=== PATIENT | female | born 1940 | race Caucasian/White ===

== ENCOUNTER 2016-09-17 10:36 | Emergency (ER) | payer MEDICARE ==
[~2016-09-17] VITALS: Ht 165.1 cm; Wt 74.5 kg
[2016-09-17 10:52] VITALS: BP 146/72; PULSE 74; RESP 18; TEMP 98.1; O2SAT 96
[2016-09-17] MEDS ORDERED: ASPI-110 PO (10:59)
[2016-09-17] MEDS ORDERED: AMLO10 PO (10:59)
[2016-09-17] MEDS ORDERED: IRBE300T44 PO (10:59)
[2016-09-17] MEDS ORDERED: HYDR12.57 PO (10:59)
[2016-09-17 11:00] VITALS: BP 146/72; PULSE 74; RESP 14; TEMP 98.1; O2SAT 96
--- NOTE | 2016-09-17 11:38 | RADHPO ---
EXAM DATE/TIME: 09/17/2016 11:23 [place] COMPARISON: No previous studies available for comparison. INDICATIONS : Left arm pain; fall yesterday. MEDICAL HISTORY : None. SURGICAL HISTORY : None. ENCOUNTER: Initial ACUITY: 1 day PAIN SCORE: 10/10 LOCATION: Left humerus. FINDINGS: There is a transverse fracture through the surgical head of the humerus with possible involvement of the greater and lesser tuberosity and possible impaction. The shaft of the humerus is intact and no radiopaque foreign bodies. CONCLUSION: Fracture of the surgical neck of the proximal humerus with possible involvement of the tuberosities. Scott Casper MD on September 17, 2016 at 11:35 Board Certified Radiologist. This report was verified electronically.
--- NOTE | 2016-09-17 11:56 | PD ---
HPI Chief Complaint: Injury Time Seen by Provider: 11:15 Travel History International Travel<30 days: No Contact w/Intl Traveler<30days: No Traveled to known affect area: No History of Present Illness HPI 75-year-old female presents to the emergency room for evaluation of left shoulder pain after trip and fall last night. Patient stubbed her toe and fell to the left landing directly on her left shoulder. She had immediate pain. She took 800 g ibuprofen last night. Her took her to an urgent care center this morning where x-rays were performed that showed she had a large fracture in her shoulder. She was given a sling and discharged with prescription for Percocet. Patient states pain is localized to the humeral head. When she does not move her arm, pain is controlled. With any range of motion, she has extreme pain. Denies paresthesias. She denies hitting her loss of consciousness. Denies any other injuries including back pain, neck pain , hip pain. She has been ambulatory since falling. She last drank coffee with cream and sugar this morning at 7:00. She has not eaten today. She does not have an orthopedic surgeon in the area. [facility] Past Medical History Hypertension: Yes Tetanus Vaccination: > 5 Years Influenza Vaccination: Yes ?: Not Menopausal: Yes Social History Alcohol Use: Yes (Occ.) Tobacco Use: No Substance Use: No Allergies-Medications (Allergen,Severity, Reaction): Coded Allergies: No Known Allergies (Unverified , 09/17/16) Reported Meds & Prescriptions Reported Meds & Active Scripts Active Reported Aspirin 81 (Aspirin) 81 Mg Tabdr 2 Tab PO DAILY Norvasc (Amlodipine Besylate) 10 Mg Tab 10 Mg PO DAILY Hydrochlorothiazide 12.5 Mg Cap 12.5 Mg PO DAILY Avapro (Irbesartan) 300 Mg Tab 300 Mg PO DAILY Review of Systems Except as stated in HPI: all other systems reviewed are Neg Physical Exam Narrative GENERAL: Well-nourished, well-developed female in no acute distress. Afebrile. Ambulatory. SKIN: Focused skin assessment warm/dry. HEAD: Normocephalic. EYES: No scleral icterus. No injection or drainage. NECK: Supple, trachea midline. No JVD or lymphadenopathy. CARDIOVASCULAR: Regular rate and rhythm without murmurs, gallops, or rubs. RESPIRATORY: Breath sounds equal bilaterally. No accessory muscle use. EXTREMITY: Left shoulder extremely tender to palpation. Limited range of motion of the shoulder secondary to pain. 2+ radial pulse. Radial, ulnar, and median nerves intact. Data Data Last Documented VS Vital Signs Date Time Temp Pulse Resp B/P Pulse Ox O2 Delivery O2 Flow Rate FiO2 09/17/16 11:00 98.1 74 14 146/72 96 09/17/16 10:52 Room Air Orders Humerus (Min 2vws) (09/17/16 ) MDM Medical Decision Making Medical Screen Exam Complete: Yes Emergency Medical Condition: Yes Medical Record Reviewed: Yes Differential Diagnosis Fracture versus sprain versus strain Narrative Course 75-year-old female presents to the emergency room for evaluation of left shoulder pain after trip and fall last night. Patient denies any other symptoms. Pain is controlled if there is no movement of the arm but she has excruciating pain with any range of motion. Left upper extremity is neurovascular intact with 2+ radial pulse. Radial, ulnar, median nerves intact. X-ray shows a proximal humeral neck fracture with possible involvement of the tuberosities. Fracture appears nondisplaced. I spoke to my attending physician, Dr. Gonzalez, who recommends having patient follow up as an outpatient as the fracture does not seem surgical. Patient placed in sling and swath. She will be discharged with instructions to follow up with an orthopedic surgeon or return for worsening symptoms. She understands and agrees to plan. Diagnosis Primary Impression: Humeral surgical neck fracture Qualified Code: S42.215A - Closed nondisplaced fracture of surgical neck of left humerus, unspecified fracture morphology, initial encounter Referrals: Jason Carlson MD Patient Instructions: General Instructions, Proximal Humerus Fracture (ED) Additional Instructions: Rest and drink plenty of fluids. Take prescribed Percocet as directed, as needed for pain. Do not drink alcohol or drive will taking this medication. Apply ice to the affected area for 20 minutes at a time, as needed for pain and swelling. Follow-up with a primary care physician. Return to the emergency room for worsening symptoms. Disposition: 01 DISCHARGE HOME Condition: Stable Lory Betts Sep 17, 2016 11:56
== END 2016-09-17 12:00 | disposition home or self-care (01) ==
LOC: PHEFT 10:36
DX: S42.215A Unspecified nondisplaced fracture of surgical neck of left humerus, initial encounter for closed fracture (principal); I10 Essential (primary) hypertension; W01.0XXA Fall on same level from slipping, tripping and stumbling without subsequent striking against object, initial encounter; Y93.9 Activity, unspecified; Y92.9 Unspecified place or not applicable; Y99.8 Other external cause status
CPT/HCPCS: 73060; 99283